=== PATIENT | female | born 1995 | race African-American/Black ===

== ENCOUNTER 2019-10-15 12:00 | Emergency (ER) | payer SELFPAY ==
--- NOTE | 2019-10-15 12:56 | ER ---
Nurse's Notes [facility] Name: Rachel Martinez Age: 24 yrs Sex: Female : 1995 Arrival Date: 10/15/2019 Time: 12:03 Bed 26 Private MD: Diagnosis: Dental caries Presentation: 10/14 12:24 Chief complaint: Patient states: Toothache since . Reports swelling on L jaw. ca1 C/O chest pain since Tuesday. Denies fever, cough and congestion. Coronavirus screen: Patient denies fever greater than 100.4F, cough, shortness of breath, or difficulty breathing. Proceed with normal triage process. Ebola Screen: Patient negative for fever greater than or equal to 101.5 degrees Fahrenheit, and additional compatible Ebola Virus Disease symptoms Patient denies exposure to infectious person. Patient denies travel to an Ebola-affected area in the 21 days before illness onset. No symptoms or risks identified at this time. Initial Sepsis Screen: Does the patient meet any 2 criteria? No. Patient's initial sepsis screen is negative. Does the patient have a suspected source of infection? No. Patient's initial sepsis screen is negative. Risk Assessment: Do you want to hurt yourself or someone else? Patient reports no desire to harm self or others. Onset of symptoms was October 15, 2019. 12:24 Method Of Arrival: Ambulatory ca1 12:24 Acuity: JAMES 4 ca1 Triage Assessment: 13:01 EENT: Reports toothache. 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 - Social history:: Smoking status: Patient denies any tobacco usage or history of. - Family history:: not pertinent. - Hospitalizations: : No recent hospitalization is reported. Screenin:01 Abuse screen: Denies threats or abuse. Denies injuries from another. Nutritional wh screening: No deficits noted. Tuberculosis screening: No symptoms or risk factors identified. Fall Risk None identified. Assessment: 12:35 General: Appears in no apparent distress. Behavior is calm, cooperative, appropriate wh for age. Pain: Complains of pain in chest Pain does not radiate. Pain currently is 3 out of 10 on a pain scale. Quality of pain is described as aching, Pain began 2-3 days ago. Neuro: Level of Consciousness is awake, alert, obeys commands, Oriented to person, place, time, situation, Appropriate for age. Cardiovascular: Heart tones S1 S2 Rhythm is sinus bradycardia. Respiratory: Airway is patent Respiratory effort is even, unlabored, Respiratory pattern is regular, symmetrical, Breath sounds are clear bilaterally. GI: Abdomen is flat, non-distended. : No signs and/or symptoms were reported regarding the genitourinary system. EENT: dental carries noted. Derm: Skin is intact, is healthy with good turgor, Skin is pink, warm \T\ dry. normal. Musculoskeletal: Circulation, motion, and sensation intact. Vital Signs: 12:24 BP 114 / 84; Pulse 58; Resp 17 S; Temp 97(TE); Pulse Ox 100% on R/A; Weight 49.9 kg ca1 (R); Height 5 ft. 3 in. (160.02 cm) (R); Pain 4/10; 12:24 Body Mass Index 19.49 (49.90 kg, 160.02 cm) ca1 ED Course: 12:03 Patient arrived in ED. am2 12:27 Triage completed. ca1 12:28 Arm band placed on right wrist. ca1 12:36 Arden Ellis MD is Attending Physician. rn 12:42 Rebecca Fallon is Primary Nurse. 13:02 Patient has correct armband on for positive identification. Bed in low position. Call light in reach. Side rails up X 1. Pulse ox on. NIBP on. 13:02 No provider procedures requiring assistance completed. Patient did not have IV access during this emergency room visit. Administered Medications: No medications were administered Outcome: 12:54 Discharge ordered by . rn 13:03 Discharged to home ambulatory. 13:03 Condition: stable 13:03 Discharge instructions given to patient, Instructed on discharge instructions, follow up and referral plans. medication usage, POC Demonstrated understanding of instructions, follow-up care, medications, POC Prescriptions given X 2. 13:10 Patient left the ED. Signatures: Arden Ellis MD MD rn Moreno, Amanda am2 Rebecca Fallon wh Acob, Anne-Marie, RN RN ca1
--- NOTE | 2019-10-15 12:56 | EDPHYS ---
Physician Documentation [facility] Name: Rachel Martinez Age: 24 yrs Sex: Female : 1995 Arrival Date: 10/15/2019 Time: 12:03 Bed 26 Private MD: ED Physician Arden Ellis HPI: 10/14 12:42 This 24 yrs old Black Female presents to ER via Ambulatory with complaints of rn Toothache, Chest Pain. 12:42 The patient presents with pain. rn 12:42 The problem is located in the left lower molar. Onset: The symptoms/episode rn began/occurred 4 day(s) ago. Duration: The symptoms are intermittent. Modifying factors: The symptoms are alleviated by nothing, the symptoms are aggravated by chewing, food. Severity of symptoms: At their worst the symptoms were moderate, in the emergency department the symptoms are unchanged. The patient has experienced similar episodes in the past. Reports here mainly for left lower molar pain but also experienced brief chest pain today, central, cannot describe it, no known medical/heart/lung problems. . 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 - Social history:: Smoking status: Patient denies any tobacco usage or history of. - Family history:: not pertinent. - Hospitalizations: : No recent hospitalization is reported. ROS: 12:42 Constitutional: Negative for fever, chills, and weight loss, Eyes: Negative for injury, rn pain, redness, and discharge, ENT: + dental pain Cardiovascular: Negative for palpitations, and edema, Respiratory: Negative for shortness of breath, cough, wheezing Abdomen/GI: Negative for abdominal pain, diarrhea, and constipation, MS/Extremity: Negative for injury and deformity, Neuro: Negative for headache, weakness, numbness, tingling, and seizure. Exam: 12:42 Constitutional: This is a well developed, well nourished patient who is awake, alert, rn and in no acute distress. Head/Face: Normocephalic, atraumatic. Eyes: Conjunctiva and sclera are non-icteric and not injected. Cornea within normal limits. Periorbital areas with no swelling, redness, or edema. ENT: + poor dentition without obvious infection/swelling Skin: Warm, dry MS/ Extremity: Pulses equal, no cyanosis 12:52 ECG was reviewed by the Attending Physician. rn Vital Signs: 12:24 BP 114 / 84; Pulse 58; Resp 17 S; Temp 97(TE); Pulse Ox 100% on R/A; Weight 49.9 kg ca1 (R); Height 5 ft. 3 in. (160.02 cm) (R); Pain 4/10; 12:24 Body Mass Index 19.49 (49.90 kg, 160.02 cm) ca1 MDM: 12:36 Patient medically screened. rn 12:53 Differential diagnosis: dental caries, dental abscess. Data reviewed: vital signs, rn nurses notes, and as a result, I will discharge patient. Counseling: I had a detailed discussion with the patient and/or guardian regarding: the historical points, exam findings, and any diagnostic results supporting the discharge/admit diagnosis, the need for outpatient follow up, to return to the emergency department if symptoms worsen or persist or if there are any questions or concerns that arise at home. Special discussion: I discussed with the patient/guardian in detail that at this point there is no indication for admission to the hospital. It is understood, however, that if the symptoms persist or worsen the patient needs to return immediately for re-evaluation. Based on the history and exam findings, there is no indication for further emergent testing or inpatient evaluation. I discussed with the patient/guardian the need to see a dentist for further evaluation of the symptoms. 10/14 12:40 Order name: EKG; Complete Time: 12:44 rn 10/14 12:40 Order name: EKG - Nurse/Tech; Complete Time: 12:54 rn EC: Rate is 56 beats/min. Rhythm is regular. QRS [place] is Normal. [place] interval is normal. QRS rn interval is normal. QT interval is normal. No Q waves. T waves are Normal. No ST changes noted. Clinical impression: Sinus bradycardia. Interpreted by me. Reviewed by me. Administered Medications: No medications were administered Disposition: 10/15/19 12:54 Discharged to Home. Impression: Dental caries. - Condition is Stable. - Discharge Instructions: Dental Pain. - Prescriptions for Clindamycin HCl 300 mg Oral Capsule - take 1 capsule by ORAL route every 6 hours for 10 days; 40 capsule. Diclofenac Sodium 75 mg Oral Tablet, Delayed Release (E.C.) - take 1 tablet by ORAL route 2 times per day; 15 tablet. - Medication Reconciliation Form, Thank You Letter, Antibiotic Education, Prescription Opioid Use, Work release form form. - Follow up: Private Physician; When: As needed; Reason: Recheck today's complaints, Re-evaluation by your physician. - Problem is new. - Symptoms have improved. Signatures: Arden Ellis MD MD rn [place], [place]y [place], ANN Xie RN ca1 Corrections: (The following items were deleted from the chart) 13:10 12:54 10/15/2019 12:54 Discharged to Home. Impression: Dental caries. Condition is wh Stable. Forms are Medication Reconciliation Form, Thank You Letter, Antibiotic Education, Prescription Opioid Use. Follow up: Private Physician; When: As needed; Reason: Recheck today's complaints, Re-evaluation by your physician. Problem is new. Symptoms have improved. rn
[2019-10-15 13:18] VITALS: BP 114/84; TEMP 97; O2SAT 100
--- NOTE | 2019-10-16 10:01 | EKG ---
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
== END 2019-10-15 13:10 | disposition home or self-care (01) ==
LOC: ER 12:00
DX: K02.9 Dental caries, unspecified (principal)
CPT/HCPCS: 93005; 99284